=== PATIENT | female | born 1985 | race Caucasian/White ===

== ENCOUNTER → 2017-09-06 | Outpatient (CLI) | payer BC ==
--- NOTE | 2017-09-06 09:15 | MR ---
EXAMINATION TYPE: MR brain wo/w con DATE OF EXAM: 09/06/2017 COMPARISON: NONE HISTORY: Headache TECHNIQUE: Multiplanar, multisequence images of the brain and brainstem is performed without and with IV contras t, utilizing 7.5 mL intravenous Gadavist . FINDINGS: Diffusion weighted images demonstrate no evidence of a recent infarct or other diffusion ab normality. There is no extra-axial fluid collection. There is a solitary punctate T2/FLAIR hyperinte nse subcortical focus within the right hemisphere on image FLAIR axial fat-sat image 20 that does not demonstrate abnormal enhancement. The ventricular system and cisternal spaces are normal in size and appearance. The brain volume is age appropriate. Midline structures demonstrate normal morphology. Major intracranial flow voids are maintained. The c raniocervical junction appears within normal limits. Post contrast images demonstrate no abnormal en hancement. The dural venous sinuses appear patent. The visualized sinuses are clear and the globes ar e intact. IMPRESSION: Solitary subcortical nonenhancing punctate focus of white matter change that given its di stribution most likely a sequela of migraines. No MR findings to currently support the diagnosis of d emyelinating disease. No intracranial enhancing mass or recent infarct.
== END | disposition home or self-care (01) ==
LOC: RADMRIMAIN 07:51
PROVIDERS: ATTEND Family Medicine
DX: G44.221 Chronic tension-type headache, intractable (principal); R90.82 White matter disease, unspecified; R20.2 Paresthesia of skin; H81.49 Vertigo of central origin, unspecified ear
CPT/HCPCS: 70553; A9581

== ENCOUNTER 2023-10-13 02:15 | Emergency (ER) | payer BC ==
[2023-10-13] MEDS ORDERED: SODIUM CHLORIDE 0.9% 1,000 ML BAG ONE (04:20)
--- NOTE | 2023-11-21 16:23 | CT ---
EXAM: CT Abdomen and Pelvis Without Intravenous Contrast CLINICAL HISTORY: r flank pain TECHNIQUE: Axial computed tomography images of the abdomen and pelvis without intravenous contrast. CTDI is 27.1 mGy and DLP is 1755.1 mGy-cm. This CT exam was performed using one or more of the following dose reduction techniques: automated exposure control, adjustment of the mA and/or kV according to patient size, and/or use of iterative reconstruction technique. COMPARISON: No relevant prior studies available. FINDINGS: Limitations:Absent contrast limit evaluation. Lung bases: Tiny peripheral nodule in the left lower lobe, nonspecific and probably benign. No dense consolidation. Mediastinum: Small hiatal hernia. ABDOMEN: Liver:Unremarkable. Gallbladder and bile ducts:Unremarkable. No calcified stones. No ductal dilation. Pancreas:Unremarkable. No ductal dilation. Spleen:Unremarkable. No splenomegaly. Adrenals:Unremarkable. No mass. Kidneys and ureters: Mild right hydronephrosis and ureteral dilatation. No right renal calcification. No left renal calcification. Stomach and bowel: Mild retained stool. No mucosal thickening. No focal small bowel dilatation. PELVIS: Appendix:No findings to suggest acute appendicitis. Bladder: Punctate calcification in the left bladder base which may reflect recently passed right ureteral calculus. Reproductive:Unremarkable as visualized. ABDOMEN and PELVIS: Intraperitoneal space:Unremarkable. No free fluid or free air. Bones/joints:No acute fracture. No dislocation. Soft tissues: Small periumbilical hernia containing fat. Vasculature:Unremarkable. No abdominal aortic aneurysm. Lymph nodes:Unremarkable. No enlarged lymph nodes. IMPRESSION: 1. Mild right hydronephrosis and ureteral dilatation and calcification in the left bladder base, likely due to recent passage of calculus. 2. No renal calculus. 3. Nonspecific bowel gas pattern with mild retained stool. 4. No evidence for appendicitis Radiologist: Amy Joyner M.D. Electronically Signed: 10/13/23 10:19 Study ready at 04:47 and initial results transmitted at 10:19 Results also transmitted to Film Room, Film Room @ [phone] (Fax [phone]
== END 2023-10-13 08:25 | disposition home or self-care (01) ==
LOC: EC 02:15
DX: N13.2 Hydronephrosis with renal and ureteral calculous obstruction (principal)
CPT/HCPCS: 74176; 96360; 99284